=== PATIENT | female | born 1980 | race Caucasian/White ===

== ENCOUNTER 2018-12-08 13:38 | Emergency (ER) | payer MEDICAID | END 2018-12-08 16:20 | disposition home or self-care (01) | LOC: FTE 13:38 | DX: K64.4 Residual hemorrhoidal skin tags (principal) | CPT/HCPCS: 99284; Z7502 ==

== ENCOUNTER 2018-12-24 06:13 | Emergency (ER) | payer MEDICAID ==
[2018-12-24] MEDS: ONDANSETRON 4 MG INJ IV (07:31)
[2018-12-24] MEDS: morphine 4 MG/ML VIAL IV (07:31)
[2018-12-24] MEDS: SOD CHLORIDE 0.9% 1,000 ML IV (07:32)
[2018-12-24 07:33] LABS: ADD MAN DIFF? NO
[2018-12-24 07:35] LABS: BASOPHILS % 0.5 % (0.0-2.0); EOSINOPHILS # 0.1 10^3/ul (0.0-0.5); EOSINOPHILS % 1.7 % (0.0-7.0); HEMATOCRIT 39.9 % (37.0-47.0); HEMOGLOBIN 13.8 g/dl (12.0-16.0); LYMPHOCYTES # 1.8 10^3/ul (0.8-2.9); LYMPHOCYTES % 27.2 % (15.0-51.0); MEAN CORPUSCULAR HEMOGLOBIN 30.1 pg (29.0-33.0); MEAN CORPUSCULAR HGB CONC 34.6 g/dl (32.0-37.0); MEAN CORPUSCULAR VOLUME 86.9 fl (82.0-101.0); MEAN PLATELET VOLUME 8.6 fl (7.4-10.4); MONOCYTE # 0.5 10^3/ul (0.3-0.9); MONOCYTES % 7.5 % (0.0-11.0); NEUTROPHILS % 62.6 % (39.0-77.0); PLATELET COUNT 266 10^3/UL (140-415); RED BLOOD COUNT 4.59 10^6/ul (4.20-5.40); RED CELL DISTRIBUTION WIDTH 11.9 % (11.5-14.5)
[2018-12-24 07:35] LABS: WHITE BLOOD COUNT 6.4 10^3/ul (4.8-10.8)
[2018-12-24] MEDS: KETOROLAC 30 MG INJ IV (07:39)
[2018-12-24] MEDS: KETOROLAC 15 MG INJ IV (07:39)
[2018-12-24 07:55] LABS: INR 0.91; PROTIME 12.4 Sec (11.9-14.9)
[2018-12-24 07:56] LABS: PARTIAL THROMBOPLASTIN TIME 28.3 Sec (23.0-35.0)
[2018-12-24 08:01] LABS: ALANINE AMINOTRANSFERASE 29 IU/L (13-69); ALBUMIN 4.3 g/dl (3.3-4.9); ALBUMIN/GLOBULIN RATIO 1.38; ALKALINE PHOSPHATASE 56 IU/L (42-121); AMYLASE 120 U/L (11-123); ANION GAP 7 (5-13); ASPARTATE AMINO TRANSFERASE 23 IU/L (15-46); BILIRUBIN,INDIRECT 0.3 mg/dl (0-1.1); BILIRUBIN,TOTAL 0.3 mg/dl (0.2-1.3); BLOOD UREA NITROGEN 21 mg/dl (7-20); CALCIUM 9.1 mg/dl (8.4-10.2); CARBON DIOXIDE 30 mmol/L (21-31); CHLORIDE 107 mmol/L (97-110); CREATININE 0.62 mg/dl (0.44-1.00); Estimated GFR > 60 mL/min (>60); GLUCOSE 114 mg/dl (70-220); LIPASE 179 U/L (23-300); POTASSIUM 4.1 mmol/L (3.5-5.1); SODIUM 144 mmol/L (135-144); TOTAL PROTEIN 7.4 g/dl (6.1-8.1)
== END 2018-12-24 11:45 | disposition home or self-care (01) ==
LOC: E/R 06:13
DX: K80.20 Calculus of gallbladder without cholecystitis without obstruction (principal)
CPT/HCPCS: 76705; 80053; 81025; 82150; 83690; 85025; 85610; 85730; 93005; 96374; 96375; 99285-25